=== PATIENT | female | born 1995 | race Caucasian/White ===

== ENCOUNTER → 2018-01-23 17:09 | Emergency (ER) | payer BC, MEDICAID, OTHER ==
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
[2018-01-23 21:46] VITALS: BP 132/74
== END | disposition home or self-care (01) ==
LOC: ED 17:09
DX: S06.0X1A Concussion with loss of consciousness of 30 minutes or less, initial encounter (principal); S16.1XXA Strain of muscle, fascia and tendon at neck level, initial encounter; Y04.8XXA Assault by other bodily force, initial encounter; Y92.9 Unspecified place or not applicable
CPT/HCPCS: 70450; 72125; 99282

== ENCOUNTER 2018-05-16 18:41 | Emergency (ER) | payer SELFPAY ==
[2018-05-16] MEDS ORDERED: diPHENhydraMINE PO* 50 MG PO ONE (20:41)
[2018-05-16] MEDS ORDERED: predniSONE TAB* 20 MG PO ONE (20:42)
--- NOTE | 2018-05-16 20:53 | ED ---
Skin Complaint - HPI Summary HPI Summary: Patient complains of red spots under left eye after starting to use new makeup 20 days.. States she has stopped using new makeup 3 days ago with some improvement in symptoms but spots remained. Denies any vision change or ocular pain. Denies fever, cough, sore throat, CP, SOB, N/V/D, abdominal pain, change in urine, change in BM. Medical history is none. - History of Current Complaint Chief Complaint: EDEyeProblem Time Seen by Provider: 05/16/18 20:32 Stated Complaint: PAIN IN LEFT EYE Hx Obtained From: Patient Onset/Duration: Started Days Ago Timing: Constant Onset Severity: Moderate Current Severity: Moderate Pain Intensity: 5 Pain Scale Used: 0-10 Numeric Skin Location: Discrete Aggravating Symptom(s): Nothing Alleviating Symptom(s): Nothing Associated Signs & Symptoms: Rash - Allergy/Home Medications Allergies/Adverse Reactions: Allergies Allergy/AdvReac Type Severity Reaction Status Date / Time Latex, Natural Rubber Allergy Swelling Verified 05/16/18 19:04 PMH/Surg Hx/FS Hx/Imm Hx Endocrine/Hematology History: Denies: Hx Anticoagulant Therapy Cardiovascular History: Denies: Hx Cardiac Arrest Respiratory History: Denies: Hx Chronic Obstructive Pulmonary Disease (COPD) History: Denies: Hx Dialysis Sensory History: Denies: Hx Eye Prosthesis, Hx Legally Blind, Hx Deafness Opthamlomology History: Denies: Hx Legally Blind EENT History: Denies: Hx Deafness Psychiatric History: Denies: Hx Anxiety, Hx Eating Disorder, Hx Depression, Hx of Violent Episodes Against Others Infectious Disease History: No Infectious Disease History: Denies: Traveled Outside the [place] in Last 30 Days - Family History Known Family History: Positive: Hypertension, Blood Disorder - anemia Negative: Diabetes - Social History Alcohol Use: None Hx Substance Use: Yes Substance Use Type: Reports: Marijuana Substance Use Comment - Amount & Last Used: 01/21 Hx Tobacco Use: No Smoking Status (MU): Never Smoked Tobacco Review of Systems Constitutional: Negative Eyes: Negative ENT: Negative Cardiovascular: Negative Respiratory: Negative Gastrointestinal: Negative Genitourinary: Negative Musculoskeletal: Negative Positive: Rash Neurological: Negative Psychological: Normal All Other Systems Reviewed And Are Negative: Yes Physical Exam - Summary Physical Exam Summary: 2 small patches of red irritated tissue under left eye. Blanchable. No purulent discharge. No vesicles. EOMI Triage Information Reviewed: Yes Vital Signs On Initial Exam: Initial Vitals Temp Pulse Resp BP Pulse Ox 98.6 F 95 16 128/82 100 05/16/18 19:00 05/16/18 19:00 05/16/18 19:00 05/16/18 19:00 05/16/18 19:00 Vital Signs Reviewed: Yes Appearance: Positive: Well-Appearing Skin: Positive: Warm Head/Face: Positive: Normal Head/Face Inspection Eyes: Positive: Normal ENT: Positive: Normal ENT inspection Neck: Positive: Supple Respiratory/Lung Sounds: Positive: Clear to Auscultation Cardiovascular: Positive: Normal Abdomen Description: Positive: Nontender Musculoskeletal: Positive: Normal Neurological: Positive: Normal Psychiatric: Positive: Normal AVPU Assessment: Alert - Monitor Coma Scale Best Eye Response: 4 - Spontaneous Best Motor Response: 6 - Obeys Commands Best Verbal Response: 5 - Oriented Coma Scale Total: 15 Diagnostics - Vital Signs Vital Signs Temp Pulse Resp BP Pulse Ox 05/16/18 19:00 98.6 F 95 16 128/82 100 - Laboratory Lab Statement: Any lab studies that have been ordered have been reviewed, and results considered in the medical decision making process. Course/Dx - Course Course Of Treatment: Patient complains of red spots under left eye after starting to use new makeup 20 days.. States she has stopped using new makeup 3 days ago with some improvement in symptoms but spots remained. Denies any vision change or ocular pain. Denies fever, cough, sore throat, CP, SOB, N/V/D , abdominal pain, change in urine, change in BM. Medical history is none. Physical exam:2 small patches of red irritated tissue under left eye. Blanchable. No purulent discharge. No vesicles. EOMI. Vital signs within normal limits. Patient refused Benadryl as it makes her very sleepy. Patient started on prednisone 60 mg here in the ED. Rx for prednisone 40 mg 5 days. - Diagnoses Provider Diagnoses: Allergic reaction Discharge - Sign-Out/Discharge Documenting (check all that apply): Patient Departure - Discharge Plan Condition: Stable Disposition: HOME Prescriptions: predniSONE TAB* [Deltasone 20 MG TAB*] 40 mg PO DAILY 5 Days #10 tab Patient Education Materials: General Allergic Reaction (ED) Referrals: No Primary Care Phys,NOPCP [Primary Care Provider] - Additional Instructions: Take prednisone as directed. Avoid using makeup next couple days if possible. Follow-up with primary care. - Billing Disposition and Condition Condition: STABLE Disposition: Home
[2018-05-16 21:14] VITALS: BP 0/0
== END 2018-05-16 21:14 | disposition home or self-care (01) ==
LOC: ED 18:41
DX: L23.2 Allergic contact dermatitis due to cosmetics (principal); Z91.040 Latex allergy status
CPT/HCPCS: 99282; A9270-GY; J7512

== ENCOUNTER 2022-09-15 18:34 | Inpatient (IN) ==
[2022-09-15] MEDS ORDERED: Buffered Lidocaine 1% SYRIN 1 ml INTRADERM ONE (18:40)
[2022-09-15] MEDS ORDERED: Promethazine INJ(RESTRICTED) 25 MG/ML 1 ml VIAL IV PRN (18:40)
[2022-09-15] MEDS ORDERED: Lactated Ringers 1000 ml BAG 1,000 ML IV ONE (18:40)
[2022-09-15] MEDS ORDERED: OBEPIDURAL (200 ML) 0 ML EPIDURAL ONE (18:56)
[2022-09-15] MEDS ORDERED: Lidocaine 1% w EPI 1:200,000 SDV 30 ML VIAL ONE (18:57)
[2022-09-15 18:59] LABS: ABS Basophils 0.1 10^3/uL (0.0-0.1); ABS Eosinophils 0.2 10^3/uL (0.0-0.5); ABS Lymphocytes 2.1 10^3/uL (1.0-4.8); ABS Monocytes 0.8 10^3/uL (0.0-0.9); ABS Neutrophils 10.1 10^3/uL (1.5-7.6); ABS Nucleated RBC 0.02 10^3/ul; Eosinophil % 1.6 %; Lymphocyte % 15.6 %; Mean Corpuscular Hemoglobin 30.1 pg (27-33); Mean Corpuscular Hgb Conc 34.2 g/dL (31-36); Mean Platelet Volume 7.4 fL (7.5-11.2); Nucleated Red Blood Cells % 0.1 /100 WBC (0.0-0.4); Platelet Count 251 10^3/uL (150-450); Red Blood Count 4.66 10^6/uL (3.63-4.92); Red Cell Distribution Width 15.3 % (12-17); White Blood Count 13.3 10^3/uL (3.8-11.8)
[2022-09-15] MEDS ORDERED: Lactated Ringers 1000 ml BAG 1,000 ML IV SCH ×3 (19:00→22:00)
[2022-09-15] MEDS ORDERED: Bupivacaine 0.25% SDV PF 10 ML VIAL INJ ONE (19:23)
[2022-09-15] MEDS ORDERED: Phenylephrine 40 mcg/mL 10mL (400mcg) SYRINGE IV PUSH PRN (19:39)
[2022-09-15] MEDS ORDERED: Glycerin ADULT 2.4 gm SUPP PR PRN (21:34)
[2022-09-15] MEDS ORDERED: Dibucaine 1% OINT 28.35 GM TUBE PR PRN (21:34)
[2022-09-15] MEDS ORDERED: Witch Hazel PAD JAR TOPICAL PRN (21:34)
[2022-09-15] MEDS ORDERED: Oxytocin 10 UNITS/ML 1 ML VIAL ONE (23:54)
[2022-09-16] MEDS ORDERED: RHO D Immune Globulin (HUMAN) 300 MCG = 1,500 I.U. INJ IM ONE (00:26)
[2022-09-16 07:11] LABS: ABS Basophils 0.1 10^3/uL (0.0-0.1); ABS Eosinophils 0.1 10^3/uL (0.0-0.5); ABS Lymphocytes 2.3 10^3/uL (1.0-4.8); ABS Neutrophils 10.9 10^3/uL (1.5-7.6); ABS Nucleated RBC 0.01 10^3/ul; Eosinophil % 0.4 %; Hematocrit 32.3 % (35-45); Lymphocyte % 15.9 %; Mean Corpuscular Hemoglobin 30.2 pg (27-33); Mean Corpuscular Volume 88.8 fL (80-97); Mean Platelet Volume 7.4 fL (7.5-11.2); Nucleated Red Blood Cells % 0.1 /100 WBC (0.0-0.4); Platelet Count 220 10^3/uL (150-450); Red Blood Count 3.64 10^6/uL (3.63-4.92); Red Cell Distribution Width 15.2 % (12-17); White Blood Count 14.2 10^3/uL (3.8-11.8)
[2022-09-17 09:38] VITALS: BP 94/77
== END 2022-09-17 13:27 | disposition home or self-care (01) | DRG 560 ==
LOC: MCHOBOUT 18:34 → MCHOB 18:39
PROVIDERS: ADMIT Registered Nurse; ATTEND Registered Nurse

== ENCOUNTER 2024-05-01 07:42 | Inpatient (IN) ==
[2024-05-01 08:48] LABS: Urine Appearance Turbid; Urine Bilirubin Negative (Negative); Urine Blood 1+ (Negative); Urine Color Light-Yellow; Urine Glucose Negative (Negative); Urine Ketones Negative (Negative); Urine Nitrite Negative (Negative); Urine Protein 3+ (>=300 mg/dL) (Negative); Urine Specific Gravity 1.006 (1.002-1.030); Urine Urobilinogen Negative (Negative); Urine pH 7.5 (5.0-8.0)
[2024-05-01 08:53] LABS: Urine Benzodiazepine Screen None Detected (None Detect); Urine Cannabinoids Screen None Detected (None Detect); Urine Opiates Screen None Detected (None Detect)
[2024-05-01] MEDS ORDERED: Nalbuphine 10 MG/ML 1 ML VIAL IV PRN (08:56)
[2024-05-01] MEDS ORDERED: Lidocaine 1% VIAL 10 MG/ML 30 ML VIAL INJ PRN (08:56)
[2024-05-01] MEDS ORDERED: Penicillin G Potassium IV 3,000,000 UNITS in NS 0.9% 100 ml BAG 100 ML IVPB SCH (09:00)
[2024-05-01 09:14] LABS: Urine Bacteria Absent /HPF (Absent); Urine Red Blood Cell 3+(>10/hpf) /HPF (0-Trace); Urine Squamous Epithelial Cell Present /HPF (Absent); Urine White Blood Cell 2+(11-20/hpf) /HPF (0-Trace)
[2024-05-01] MEDS: Buffered Lidocaine 1% SYRIN 1 ml INTRADERM ONE (09:29)
[2024-05-01] MEDS: ceFAZolin 2 GM PREMIX 2 GM/50 ML BAG IV ONE (09:37)
[2024-05-01 09:40] LABS: ABS Basophils 0.1 10^3/uL (0.0-0.1); ABS Eosinophils 0.1 10^3/uL (0.0-0.5); ABS Lymphocytes 1.8 10^3/uL (1.0-4.8); ABS Monocytes 0.5 10^3/uL (0.0-0.9); ABS Neutrophils 7.6 10^3/uL (1.5-7.6); ABS Nucleated RBC 0.01 10^3/ul; Eosinophil % 0.9 %; Hematocrit 33.5 % (35-45); Hemoglobin 11.1 g/dL (11.5-14.3); Lymphocyte % 17.9 %; Mean Corpuscular Hemoglobin 27.1 pg (27-33); Mean Corpuscular Hgb Conc 33.1 g/dL (31-36); Mean Corpuscular Volume 81.9 fL (80-97); Mean Platelet Volume 7.8 fL (7.5-11.2); Nucleated Red Blood Cells % 0.1 %/100WBC (0.0-0.8); Platelet Count 276 10^3/uL (150-450); Red Blood Count 4.08 10^6/uL (3.63-4.92); Red Cell Distribution Width 16.2 % (12-17); White Blood Count 10.1 10^3/uL (3.8-11.8)
[2024-05-01] MEDS: ceFAZolin VIAL 1 GM in NS 0.9% 50 ML 50 ML IVPB SCH (09:41)
[2024-05-01] MEDS: Lactated Ringers 1000 ml BAG 1,000 ML IV SCH (09:41)
[2024-05-01] MEDS: Penicillin G Potassium IV 5,000,000 UNITS in NS 0.9% 100 ml BAG 100 ML IVPB ONE (10:14)
[2024-05-01 10:17] LABS: Albumin 3.5 g/dL (3.5-5.7); Albumin/Globulin Ratio 1.2 (1-3); Calcium 8.6 mg/dL (8.6-10.3); Creatinine, Serum 0.45 mg/dL (0.51-0.95); Total Bilirubin 0.5 mg/dL (0.2-1.0); Total Protein 6.5 g/dL (6.4-8.9)
[2024-05-01] MEDS: miSOPROStol 100 mcg TAB PO ONE ×2 (12:13→16:24)
[2024-05-01] MEDS: ceFAZolin 1 GM in Dextrose 1 GM/50 ML BAG IVPB SCH (18:04)
[2024-05-01] MEDS: OBEPIDURAL (200 ML) 200 ML EPIDURAL ONE (18:30)
[2024-05-01 20:00] LABS: Urine Appearance Clear; Urine Bilirubin Negative (Negative); Urine Blood Negative (Negative); Urine Color Light-Yellow; Urine Glucose Negative (Negative); Urine Ketones 2+ (Negative); Urine Nitrite Negative (Negative); Urine Protein Negative (Negative); Urine Specific Gravity 1.007 (1.002-1.030); Urine Urobilinogen Negative (Negative); Urine pH 5.5 (5.0-8.0)
[2024-05-02] MEDS: Oxytocin in LR 20,000 MILLI.UNIT/1,000 ML BAG IV ONE (04:23)
[2024-05-02] MEDS ORDERED: Glycerin ADULT 2.4 gm SUPP PR PRN (06:31)
[2024-05-02] MEDS ORDERED: Lactated Ringers 1000 ml BAG 1,000 ML IV SCH (07:00)
[2024-05-02] MEDS: Dibucaine 1% OINT 28.35 GM TUBE PR PRN (07:41)
[2024-05-02] MEDS: Witch Hazel PAD JAR TOPICAL PRN (07:41)
[2024-05-02] MEDS: Phenylephrine 40 mcg/mL 10mL (400mcg) SYRINGE ONE (09:17)
[2024-05-02] MEDS: Lactated Ringers 1000 ml BAG 1,000 ML IV ONE (09:18)
[2024-05-02] MEDS: Lidocaine 1.5% EPI 1:200,000 30 ML SDV ONE (09:18)
[2024-05-02] MEDS: RHO D Immune Globulin (HUMAN) 300 MCG = 1,500 I.U. INJ IM ONE (11:19)
[2024-05-02] MEDS: Oxytocin in LR 20,000 MILLI.UNIT/1,000 ML BAG IV SCH (14:11)
[2024-05-03 07:31] LABS: ABS Basophils 0.1 10^3/uL (0.0-0.1); ABS Eosinophils 0.2 10^3/uL (0.0-0.5); ABS Lymphocytes 2.8 10^3/uL (1.0-4.8); ABS Monocytes 0.9 10^3/uL (0.0-0.9); ABS Neutrophils 7.6 10^3/uL (1.5-7.6); ABS Nucleated RBC 0.02 10^3/ul; Hematocrit 26.5 % (35-45); Hemoglobin 8.8 g/dL (11.5-14.3); Mean Corpuscular Hemoglobin 26.9 pg (27-33); Mean Corpuscular Hgb Conc 33.2 g/dL (31-36); Mean Corpuscular Volume 81.1 fL (80-97); Mean Platelet Volume 7.8 fL (7.5-11.2); Nucleated Red Blood Cells % 0.1 %/100WBC (0.0-0.8); Platelet Count 248 10^3/uL (150-450); Red Blood Count 3.27 10^6/uL (3.63-4.92); Red Cell Distribution Width 16.1 % (12-17); White Blood Count 11.6 10^3/uL (3.8-11.8)
[2024-05-04 07:53] VITALS: BP 120/66
== END 2024-05-04 16:40 | disposition home or self-care (01) | DRG 560 ==
LOC: MCHOBOUT 07:42 → MCHOB 08:39
PROVIDERS: ADMIT Advanced Practice Midwife; ATTEND Advanced Practice Midwife